=== PATIENT | female | born 1960 | race Caucasian/White ===

== ENCOUNTER 2020-05-19 07:03 | Outpatient (NON) | payer BC, SELFPAY ==
[2020-05-21 16:41] LABS: SARS-CoV-2 RNA PCR Negative
== END 2020-05-19 07:04 ==
LOC: ANHCOVIDDT 07:03
PROVIDERS: Visit Provider Family Medicine Adolescent Medicine
DX: Z20.828 Contact with and (suspected) exposure to other viral communicable diseases (principal); R05 Cough; R53.83 Other fatigue
CPT/HCPCS: 87635; C9803; U0003

== ENCOUNTER → 2021-11-06 16:20 | Outpatient (CLI) | payer BC, SELFPAY ==
--- NOTE | ~2021-11-06 | XR_ITS ---
EXAMINATION: XR chest 2V Exam Date/Time: 11/06/2021 16:51 CDT CLINICAL HISTORY: Persistent cough Comparison: 12/09/2018. RESULT: Lines, tubes, and devices: None. Lungs and pleura: Stable bilateral calcified granulomas, otherwise clear. Cardiomediastinal silhouette: Stable cardiomediastinal silhouette. Other: No acute osseous or upper abdominal finding. IMPRESSION: No acute cardiopulmonary process Reviewed, dictated and finalized at location K.
== END ==
PROVIDERS: PCP Family Medicine Adolescent Medicine; Visit Provider Family Medicine Adolescent Medicine
DX: R05.3 Chronic cough (principal)
CPT/HCPCS: 71046

== ENCOUNTER → 2022-12-26 10:44 | Outpatient (CLI) | payer BC, SELFPAY ==
--- NOTE | ~2022-12-26 | US_ITS ---
EXAMINATION: US pelvic complete w TV DATE: 12/26/2022 11:03 INDICATION: Postmenopausal bleeding x1 month. . No current hormone replacement, stopped hormones last April. 2 prior C-sections and tubal ligation. TECHNIQUE: Multiple transabdominal and endovaginal sonographic images of the pelvis were obtained. COMPARISON: None. FINDINGS: Uterus: 9.0 x 3.9 x 4.4 cm. Multiple nabothian cysts. Endometrial complex measures 4 mm. Right Ovary: Not visualized. No adnexal mass. Left Ovary: Not visualized. No adnexal mass. There is no free fluid in the pelvis. IMPRESSION: Ovaries not visualized. Otherwise normal pelvic sonogram findings. Reviewed, dictated and finalized at location K.
== END ==
PROVIDERS: PCP Family Medicine Adolescent Medicine; Visit Provider Obstetrics & Gynecology
DX: N95.0 Postmenopausal bleeding (principal)
CPT/HCPCS: 76830; 76856

== ENCOUNTER 2023-01-16 09:42 | Outpatient (CLI) | payer BC, SELFPAY ==
--- NOTE | ~2023-01-16 | XR_ITS ---
XR hand LT min 3V DATE: 01/16/2023 10:00 INDICATION: Osteoarthritis at first carpometacarpal joint fluid TECHNIQUE: 3 views of left hand COMPARISON: None FINDINGS: There is joint space narrowing and spurring at the first carpometacarpal joint consistent w ith mild osteoporosis. There is minimal osteoarthritic change of the first metacarpophalangeal and in terphalangeal joints. No fracture or dislocation, periosteal reaction or bone destruction, erosive change or chondrocalcino sis. IMPRESSION: Mild osteoarthritis at the first carpometacarpal joint. Minimal osteoarthritic change at the first metacarpophalangeal and interphalangeal joints Reviewed, dictated and finalized at location B. IMPRESSION: Mild osteoarthritis at the first carpometacarpal joint. Minimal ost eoarthritic change at the first metacarpophalangeal and interphalangeal joints
== END 2023-01-16 09:43 | disposition home or self-care (01) ==
LOC: ANHIMG 09:44
PROVIDERS: PCP Family Medicine Adolescent Medicine; Visit Provider Plastic Surgery
DX: M19.042 Primary osteoarthritis, left hand (principal)
CPT/HCPCS: 73130